=== PATIENT | female | born 2000 | race Caucasian/White ===

== ENCOUNTER 2024-12-21 23:24 | Emergency (ER) | payer BC, SELFPAY ==
[2024-12-21 23:25] VITALS: BP 139/72; PULSE 98; RESP 16; TEMP 37; O2SAT 100; BMI 24.3
--- NOTE | 2024-12-22 00:42 | EDS_ITS ---
HPI History of Present Illness Chief Complaint: Foreign Body PFSH PFSH Allergy/AdvReac Type Severity Reaction Status Date / Time No Known Allergies Allergy Verified 12/21/24 23:27 Social History Smoking Status: Never smoker EXAM Physical Exam Const Vital Signs: 12/21/24 23:25 12/21/24 23:46 Temperature 98.6 F Temperature Source Oral Pulse Rate 98 Respiratory Rate 16 Respiratory Effort Normal Non-Labored Respiratory Pattern Normal Blood Pressure 139/72 H Blood Pressure Mean 94 Pulse Ox 100 Oxygen Delivery Method Room Air [facility] Narrative Medical decision making narrative: HISTORY OF PRESENT ILLNESS: Chief complaint: Vaginal foreign body 24-year-old female with no significant past medical history presents with vaginal foreign body. States she placed a tampon approximately 6 PM on 12/22/2024. Notes she tried to pull it out approximate hour prior to arrival however the string broke. Denies abdominal pain. Denies trouble urinating. Denies fever or chills. [place] vomiting. REVIEW OF SYSTEMS: Pertinent positives: Vaginal foreign body Pertinent negatives: Abdominal pain, fever, nausea vomiting PHYSICAL EXAM: Nursing triage notes reviewed, Vital signs reviewed Constitutional: please see [facility] Heart: Regular rate and rhythm, No murmurs, No rubs and No gallops, 2+ distal pulses (radial, femoral, posterior tibial) in all extremities Abdomen: Soft, there is no tenderness, rigidity, rebound or guarding, no obvious peritoneal signs, no palpable pulsatile abdominal masses, no auscultated abdominal bruit : Exam performed after verbal consent obtained. With real estate associate attorney nurse Monica DRAPER present. No CVAT. No suprapubic tenderness or adnexal tenderness. Vaginal mucosa moist and pink. No lesions. Tampon visualized in the vaginal vault. Removed with forceps. No obvious bleeding or other trauma noted. MEDICAL DECISION MAKING: Chief Complaint: please see HPI History obtained from others: Significant other Consults: none [facility] Narrative: Patient was initially hemodynamically stable, afebrile and nontoxic-appearing. Exam consistent with vaginal foreign body which was removed as detailed above. Patient noted complete resolution of symptoms. She is appropriate discharge home with close DIRECTOR OF RADIOLOGY follow-up. The patient and/or family, caregivers express understanding. The patient and/or family, caregivers agrees with the plan. Shared decision making: I will have a discussion with the patient and or visitors regarding risk/benefits of further testing or admission. They will be made aware of of the risk/benefits inherent in this decision they will be given the opportunity to voice understanding. Total critical care time today provided was at least 0 minutes. This excludes separately billable procedures. Critical care time (if documented) is secondary to the patient having high probability of clinically significant/life threatening deterioration in the patient's condition which required my urgent intervention. Impression: 1. Vaginal foreign body Dispo: Discharge home This note was generated with [employer] dictation software. It may contain incorrect words, spelling, and punctuation that were not noted in review of the chart prior to signing. Discharge Plan Triage Chief Complaint: Foreign Body ED Provider: Sherif Rivera Dx/Rx/DC Orders Primary Care Provider: NOT,DEFINED Referrals: NOT,DEFINED [Primary Care Provider, None] Print Language: Divehi
[2024-12-22 00:45] VITALS: BP 118/74; PULSE 72; RESP 15; TEMP 36.1; O2SAT 99
== END 2024-12-22 00:52 | disposition home or self-care (01) ==
LOC: ED 12-22 00:52
PROVIDERS: Emergency Provider Emergency Medicine; Visit Provider Emergency Medicine
DX: T19.2XXA Foreign body in vulva and vagina, initial encounter (principal); W44.F9XA Other object of natural or organic material, entering into or through a natural orifice, initial encounter
CPT/HCPCS: 99282